=== PATIENT | female | born 1990 | race Caucasian/White ===

== ENCOUNTER 2020-07-05 13:46 | Outpatient (REF) | payer MEDICAID, SELFPAY ==
[2020-07-05 14:39] LABS: COVID-19 Test Negative (Negative)
== END 2020-07-05 13:47 | disposition home or self-care (01) ==
LOC: HO.LAB 13:46
PROVIDERS: Referring Provider Physician Assistant; Visit Provider Internal Medicine
DX: Z20.822 Contact with and (suspected) exposure to COVID-19 (principal)
CPT/HCPCS: 36415; 87635; C9803

== ENCOUNTER 2020-09-30 14:34 | Outpatient (REF) | payer MEDICAID, SELFPAY | END 2020-09-30 14:35 | disposition home or self-care (01) | LOC: HO.LAB 14:34 | PROVIDERS: PCP Physician Assistant; Visit Provider Internal Medicine | DX: Z20.822 Contact with and (suspected) exposure to COVID-19 (principal) | CPT/HCPCS: C9803; U0003; U0005 ==